=== PATIENT | male | born 1985 | race Caucasian/White ===

== ENCOUNTER 2024-11-25 11:01 | Emergency (ER) | payer SELFPAY ==
[2024-11-25 11:25] VITALS: PULSE 85; RESP 20; TEMP 36.7; O2SAT 98; BMI 24.2
[2024-11-25 11:53] LABS: Hematocrit 45.4 % (37-53); Hemoglobin 15.30 g/dL (11.27-16.99); Mean Corpuscular HGB Conc 33.7 g/dL (30-55); Mean Corpuscular Hemoglobin 30.9 pg (27-33); Mean Corpuscular Volume 91.7 fl (82-101); Nucleated Red Blood Cells % 0 %; Platelet Count 453 10^3/cmm (157-399); Red Blood Count 4.95 10^6/uL (3.85-5.65); White Blood Count 21.90 10^3/uL (3.29-11.43)
[2024-11-25] MEDS: diphenhydrAMINE 50 mg/mL SDV 1mL IVP (11:56)
--- NOTE | 2024-11-25 12:08 | CT_ITS ---
WS: [id number] CT ABDOMEN AND PELVIS WITH CONTRAST HISTORY: abd pain TECHNIQUE: Imaging performed of the abdomen and pelvis with IV contrast. Single phase imaging of the abdomen. Coronal and sagittal reformats are submitted. All CT scans at [facility] use at least one of these dose optimization techniques: automated exposure control; mA and/or kV adjustment per patient size (includes targeted exams where dose is matched to clinical indication); or iterative reconstruction. IV CONTRAST: Omnipaque 350; 100 mL IV. Oral contrast: No DLP: 479.13 mGy.cm COMPARISON: None available. Lower thorax: Lung bases are clear. Heart is normal size. No hiatal hernia. Liver/biliary system: Normal size with no intrahepatic dilatation. Gallbladder: Normal. No gallstones or wall thickening. No pericholecystic fluid. Pancreas: Normal size pancreas and pancreatic duct. No adjacent inflammation. Spleen: Normal size spleen. No mass or infarct. Adrenal glands: Normal. Right kidney: Normal size kidney with no obstruction. 2 mm nonobstructing calcifications. Left kidney: Enlarged LEFT kidney with delayed excretion. Mild diffuse perinephric stranding. Mild dilatation of the central renal pelvis and proximal ureter secondary to a 4 mm calcification in the proximal ureter. Distal ureter is normal size. There are 2 cortical hypodensities in the central kidney which may be cysts. Too small to characterize. Aorta: Normal. Lymphadenopathy: None. Free fluid: None. GI tract: No GI tract obstruction. No colitis. Normal appendix. There is a well- circumscribed low-attenuation mass measuring 2.1 x 2.0 cm in the LEFT pelvis with an asymmetric calcification. This is probably an area of fat necrosis or result of prior epiploic appendagitis. No acute findings. Abdominal wall: Fat containing umbilical hernia. Pelvis: No free fluid or adenopathy within the pelvis. Bones: Unremarkable. CT/CT abdomen pelvis w con* [id number] IMPRESSION: 1. Enlarged edematous LEFT kidney with perinephric stranding and delayed excre tion. 2. Mild LEFT hydroureteronephrosis secondary to 4 mm renal calcification in th e proximal ureter. 3. Normal appendix. 4. No free fluid or free air. 5. Fat-containing mass with peripheral calcification LEFT lower quadrant is th e result of remote epiploic appendagitis. No evidence for acute epiploic append agitis.
[2024-11-25 12:13] LABS: Alanine Aminotransferase 19 U/L (0-41); Albumin Level 4.4 g/dL (3.5-5.2); Alkaline Phosphatase 68 U/L (40-130); Anion Gap 19.7 (5-19); Aspartate Amino Transferase 21 U/L (0-40); Blood Urea Nitrogen 10 mg/dL (6-20); Calcium 9.5 mg/dL (8.5-10.5); Carbon Dioxide 20 mmol/L (22-29); Chloride 108 mmol/L (98-107); Creatinine Clr Calc Pharmacy 103.0949; Globulin 2.7 g/dL (1.3-4.6); Glucose 117 mg/dL (65-115); Lipase 28 U/L (13-60); Osmolality Calculated 298 mOsm/kg (285-295); Potassium 3.7 mmol/L (3.5-5.1); Sodium 144 mmol/L (136-145); Total Protein 7.1 g/dL (6.6-8.7)
[2024-11-25] MEDS: haloperidol inj 5 mg/mL INJ 1 mL IVP (12:19)
[2024-11-25] MEDS: LORazepam 1 MG/0.5 ML injection 2 MG IVP (12:19)
--- NOTE | 2024-11-25 12:30 | ED_ITS ---
HPI - Abdominal Pain 2 General: Chief Complaint: Abdominal Pain Stated Complaint: n/v, abd pain Time Seen by Provider: 11/25/24 11:32 History of Present Illness: 39-year-old male presents emergency room with complaints of left lower abdominal pain. Radiating to the groin. No dysuria urgency or frequency no hematuria. Pain in the flank is worse with urination. No fever sweats or chills. Associated Symptoms: Denies chills, dysuria, fever(s) and hematuria Related Data Previous Rx's ?Medication ?Instructions ?Recorded hydrocodone 5 mg-acetaminophen 325 1 tab PO Q6H PRN pa in #20 tabs 11/25/24 mg tablet promethazine 25 mg tablet 25 mg PO Q6H PRN nausea and 11/25/24 vomiting #20 tabs tamsulosin 0.4 mg capsule 0.4 mg PO DAILY #20 caps 11/12 Allergies Allergy/AdvReac Type Severity Reaction Status Date / Time No Known Allergies Allergy Verified 11/25/24 11:28 Review of Systems 2 Const: Denies: fever(s) or chills Card: Denies: chest pain Resp: Denies: dyspnea GI: Denies: abdominal pain : Reports: flank pain; Denies: dysuria, urinary frequency, urinary urgency or hematuria Musc: Denies: neck pain or back pain Skin/Breast: Denies: rash Physical Exam 2 Const: GENERAL APPEARANCE: cooperative ORIENTATION/CONSCIOUSNESS: Yes awake, Yes oriented to person, Yes oriented to place and Yes oriented to time HENMT: COMMON NORMALS: normocephalic, atraumatic and hearing grossly normal bilaterally HEAD & SCALP: normocephalic and atraumatic Resp: COMMON NORMALS: normal respiratory effort, No retractions, No use of accessory muscles and clear to auscultation bilaterally AUSCULTATION: clear to auscultation bilaterally Cardio: COMMON NORMALS: regular rate, regular rhythm and No murmurs present (Cardio) RATE: regular rate RHYTHM: regular rhythm GI: COMMON NORMALS: Soft to palpation and No hepatosplenomegaly present A USCULTATION: Yes normoactive bowel sounds PALPATION: Yes Soft to palpation, No Tenderness to palpation present (GI), No Guarding due to palpation present (GI) and Yes No hepatosplenomegaly present : BLADDER/KIDNEY EXAM: Yes CVA tenderness Back/Pelvis: GENERAL BACK: Yes CVA tenderness CVA tenderness: left Extremity: COMMON NORMALS: normal to inspection, capillary refill normal, no clubbing, cyanosis or edema, no calf tenderness and no pedal edema Neuro: SENSORIUM/ORIENTATION: Yes oriented to person, Yes oriented to place and Yes oriented to time Skin: COMMON NORMALS: no rashes or lesions noted GENERAL SKIN EXAM: no rashes or lesions noted Course 2 Vital Signs: Vital signs: Vital Signs Temperature 98.0 F 11/25/24 11:25 Pulse Rate 81 11/25/24 14:20 Respiratory Rate 20 H 11/25/24 11:25 Blood Pressure 148/93 11/25/24 14:20 Pulse Oximetry 96 11/25/24 14:20 Oxygen Delivery Me thod Room Air 11/25/24 11:25 MDM - Abdominal Pain Medical Decision Making CT shows nephrolithiasis. 4 mm stone in the left proximal ureter discharge patient home strain urine. Pain and nausea medications given pain control while in the emergency room refer to urology. Lab Data 11/25/24 11:46 11/25/24 11:46 Labs/Radiology: Radiology Impressions Abdomen/Pelvis CT 11/25/24 12:08 IMPRESSION: 1. Enlarged edematous LEFT kidney with perinephric stranding and delayed excretion. 2. Mild LEFT hydroureteronephrosis secondary to 4 mm renal calcification in the proximal ureter. 3. Normal appendix. 4. No free fluid or free air. 5. Fat-containing mass with peripheral calcification LEFT lower quadrant is the result of remote epiploic appendagitis. No evidence for acute epiploic appendagitis. Laboratory Results WBC 21.90 10^3/uL (3.29-11.43) H 11/25/24 11:46 RBC 4.95 10^6/uL (3.85-5.65) 11/25/24 11:46 Hgb 15.30 g/dL (11.27-16.99) 11/25/24 11:46 Hct 45.4 % (37-53) 11/25/24 11:46 MCV 91.7 fl (82-101) 11/25/24 11:46 MCH 30.9 pg (27-33) 11/25/24 11:46 MCHC 33.7 g/dL (30-55) 11/25/24 11:46 RDW 13.2 % (12.1-15.1) 11/25/24 11:46 Plt Count 453 10^3/cmm (157-399) H 11/25/24 11:46 MPV 8.9 fL (7.4-10.4) 11/25/24 11:46 Neut % (Auto) 76.0 % 11/25/24 11:46 Lymph % (Auto) 13.6 % 11/25/24 11:46 [place] % (Auto) 7.5 % 11/25/24 11:46 Eos % (Auto) 1.8 % 11/25/24 11:46 Baso % (Auto) 0.7 % 11/25/24 11:46 Neut # (Auto) 16.66 10^3/uL (1.8-7.7) H 11/25/24 11:46 Lymph # (Auto) 3.0 10^3/uL (0.8-4.8) 11/25/24 11:46 [place] # (Auto) 1.6 10^3/uL (0.2-0.9) H 11/25/24 11:46 Eos # (Auto) 0.4 10^3/uL (0.0-0.8) 11/25/24 11:46 Baso # (Auto) 0.2 10^3/uL (0.0-0.1) H 11/25/24 11:46 Nucleated RBC % (auto) 0 % 11/25/24 11:46 Nucleated RBCs # 0.0 /100WBC 11/25/24 11:46 Sodium 144 mmol/L (136-145) 11/25/24 11:46 Potassium 3.7 mmol/L (3.5-5.1) 11/25/24 11:46 Chloride 108 mmol/L (98-107) H 11/25/24 11:46 Carbon Dioxide 20 mmol/L (22-29) L 11/25/24 11:46 Anion Gap 19.7 (5-19) H 11/25/24 11:46 BUN 10 mg/dL (6-20) 11/25/24 11:46 Creatinine 0.9 mg/dL (0.7-1.2) 11/25/24 11:46 GFR Calculation 94.4 mL/min (90-130) 11/25/24 11:46 Glucose 117 mg/dL (65-115) H 11/25/24 11:46 Calculated Osmolality 298 mOsm/kg (285-295) H 11/25/24 11:46 Lactic Acid 2.4 mmol/L (0.5-2.2) H 11/25/24 12:55 Calcium 9.5 mg/dL (8.5-10.5) 11/25/24 11:46 Total Bilirubin 0.3 mg/dL (0.15-1.2) 11/25/24 11:46 AST 21 U/L (0-40) 11/25/24 11:46 ALT 19 U/L (0-41) 11/25/24 11:46 Alkaline Phosphatase 68 U/L (40-130) 11/25/24 11:46 Total Protein 7.1 g/dL (6.6-8.7) 11/25/24 11:46 Albumin 4.4 g/dL (3.5-5.2) 11/25/24 11:46 Globulin 2.7 g/dL (1.3-4.6) 11/25/24 11:46 Lipase 28 U/L (13-60) 11/25/24 11:46 Urine Color Yellow (Yellow) 11/25/24 Unknown Urine Appearance Clear (CLEAR) 11/25/24 Unknown Urine pH 7.5 (5-7) 11/25/24 Unknown Ur Specific [place] 1.016 (1.005-1.030) 11/25/24 Unknown Urine Protein Trace (Negative) A 11/25/24 Unknown Urine Glucose (UA) Negative (Normal) 11/25/24 Unknown Urine Ketones Trace (Negative) 11/25/24 Unknown Urine Blood 1+ (Negative) A 11/25/24 Unknown Urine Nitrate Negative (Negative) 11/25/24 Unknown Urine Bilirubin Negative (Negative) 11/25/24 Unknown Urine Urobilinogen 1.0 mg/dL (Negative) 11/25/24 Unknown Ur Leukocyte Esterase Negative (Negative) 11/25/24 Unknown Urine RBC 21-50 /hpf (0-2) H 11/25/24 Unknown Urine WBC 0-5 /hpf (0-5) 11/25/24 Unknown Ur Squamous Epith Cells 0-5 /hpf (0-5) 11/25/24 Unknown Amorphous Sediment Not Reportable 11/25/24 Unknown Urine Bacteria None seen /hpf (NONE) 11/25/24 Unknown Hyaline Casts 0.40 /lpf 11/25/24 Unknown All radiology interpretation(s) finalized by discharge Discharge Plan Discharge Patient Disposition: Home Clinical Impression: Calculus of kidney Condition: Stable Prescriptions: New hydrocodone-acetaminophen 5-325 mg tablet 1 tab PO Q6H PRN (Reason: pain) Qty: 20 0RF promethazine 25 mg tablet 25 mg PO Q6H PRN (Reason: nausea and vomiting) Qty: 20 0RF tamsulosin 0.4 mg capsule 0.4 mg PO DAILY Qty: 20 0RF Discharge Orders: Discharge ED (Routine); Ordered 11/25/24 Ordered By: Jeremiah Soto Discharge Diet: Usual diet Discharge Activity: Resume usual activity Patient Instructions: Kidney Stones (ED), How to Strain Your Urine (ED), Opioid Safety, Pain Management, Patient Portal & Esthela Instructions Activity Restrictions/Additional Instructions: Thank you for choosing [facility] for your healthcare needs today. It is very important that you follow up as instructed or that you return to the Emergency Department should you have concerns or if your condition changes or worsens in any way. You were seen in the emergency room with complaints of nausea vomiting and flank pain. CT shows you have a 4 mm kidney stone on the left corresponding with your symptoms. Your white count was elevated believe this was due to the persistent vomiting as well as mild dehydration. There is no sign of infection in your urine. You are given pain medications to control your flank pain will discharge home on hydrocodone and promethazine to use as needed started on tamsulosin daily. This medicine helps promote passage of the kidney stone. Strain your urine to collect the stone. Case management make arrangements for you to follow-up with the urologist Print Language: Macedonian Coding Level of Care Code ED Interpretive Program Coordinator for Ravi Levy
[2024-11-25] MEDS: iohexol 350 mg/mL 500 mL Btl (per mL) IV (12:31)
[2024-11-25 12:32] LABS: Glucose Urine UA Negative (Normal); Nitrate Urine Negative (Negative); Specific Gravity, Urine 1.016 (1.005-1.030)
[2024-11-25 12:35] LABS: Add Urine Microscopic? YES
[2024-11-25 13:20] LABS: Lactic Sepsis W/Reflex 2.4 mmol/L (0.5-2.2)
[2024-11-25] MEDS: morphine 4 mg/mL SDV 1 mL IVP (13:21)
[2024-11-25 14:12] VITALS: BP 148/93; PULSE 86; O2SAT 95
[2024-11-25 14:20] VITALS: BP 148/93; PULSE 81; O2SAT 96
[2024-11-25 14:45] LABS: Reflex Lactate Order REFLEX LACTIC ORDERD
--- NOTE | 2024-12-02 10:03 | DCPLANNER ---
faxed urology referral to [facility]
== END 2024-11-25 14:22 | disposition home or self-care (01) ==
PROVIDERS: Emergency Provider Family Medicine
DX: N20.0 Calculus of kidney (principal)
CPT/HCPCS: 36415; 74177; 80053; 81001; 83605; 83690; 85025; 87040; 96374; 96375; 99285; J0780; J1200; J1630; J1885; J2060; J2270; J7030